=== PATIENT | female | born 1975 | race Caucasian/White ===

== ENCOUNTER 2016-09-18 09:09 | Emergency (ER) | payer OTHER ==
[~2016-09-18] VITALS: Ht 162.6 cm; Wt 90.0 kg
[~2016-09-18 09:09] MED LIST: ABILIFY2 MG PO; ALBUTEROL SULF8.5 GM IH; ATENOLOL50 MG PO; BELSOMRA10 MG PO; BENADRYL25 MG PO; BUSPAR10 MG PO; CLONAZEPAM1 MG PO; ENDOCET 5-3251 EACH PO; FIORICET,ESG1 TABLET PO; FLEXERIL10 MG PO; FLUTICASONE PRO16 GM; GABAPENTIN600 MG PO; HYDROCODON-ACE1 EAC7 PO; KLONOPIN1 MG PO; LAMOTRIGINE200 MG PO; LEVAQUIN500 MG PO; LEXAPRO20 MG PO; LISINOPRIL10 MG PO; MAXALT MLT10 MG PO; MAXALT10 MG PO; MORPHINE SULFAT15 M1 PO; NAPROSYN500 MG PO; NEURONTIN400 MG PO; ONDANSETRON ODT4 MG PO; OXYMORPHONE HCL10 M1 PO; PREDNISONE50 MG PO; PROMETHAZINE HC25 M1 PO; REGLAN10 MG PO; ROBITUSSIN100 MG/5 M PO; SUMATRIPTAN SU100 MG PO; TRAZODONE HCL50 MG PO; VENTOLIN HFA18 GM IH; ZOFRAN4 MG PO
[2016-09-18] MEDS ORDERED: ZOFRAN4 MG PO (09:35)
[2016-09-18 09:54] VITALS: BP 132/65
== END 2016-09-18 09:57 | disposition home or self-care (01) ==
LOC: EME → EDBD 09:09 → EME 09:09
DX: F11.20 Opioid dependence, uncomplicated (principal); R11.0 Nausea; F17.200 Nicotine dependence, unspecified, uncomplicated
CPT/HCPCS: 99281; 99284